=== PATIENT | female | born 1970 | race Hispanic/Latino ===

== ENCOUNTER 2022-09-03 17:26 | Emergency (ER) | payer OTHER ==
[~2022-09-03] VITALS: Ht 157.5 cm; Wt 79.8 kg
[2022-09-03] MEDS ORDERED: KETOROLAC TROMETHAMINE 30 MG/ML VIAL IM STA (17:58)
[2022-09-03] MEDS ORDERED: IBUPROFEN600 MG PO (18:38)
[2022-09-03] MEDS ORDERED: PREDNISONE50 MG PO (18:38)
[2022-09-03] MEDS ORDERED: CYCLOBENZAPRINE5 MG PO (18:38)
== END 2022-09-03 19:05 | disposition home or self-care (01) ==
LOC: FSED 17:41
DX: S76.811A Strain of other specified muscles, fascia and tendons at thigh level, right thigh, initial encounter (principal); W01.0XXA Fall on same level from slipping, tripping and stumbling without subsequent striking against object, initial encounter; Y93.01 Activity, walking, marching and hiking; Y99.0 Civilian activity done for income or pay
CPT/HCPCS: 73552; 96372; 99283; J1885